=== PATIENT | male | born 1955 | race Caucasian/White ===

== ENCOUNTER 2018-07-27 06:31 | Inpatient (IN) ==
[2018-07-27] MEDS ORDERED: Morphine Inj 4 MG/ML Vial IV.PUSH ONE ×2 (07:17→08:19)
--- NOTE | 2018-07-27 07:20 | ED ---
HPI General Chief Complaint: Abdominal Pain Stated Complaint: Abd pain Time Seen by Provider: 07/27/18 07:09 Source: patient Mode of arrival: ambulatory Limitations: no limitations History of Present Illness HPI narrative: 63-year-old male states that 3 days ago he had abdominal pain and diarrhea but the diarrhea has now resolved. He states he does not feel like eating because of the pain and has a decreased appetite so he stopped and the diarrhea went away. He states he still nauseous and having significant abdominal pain. He states he has not had abdominal pain like this before. He states he had a kidney stone with lithotripsy about 10 years ago but with that he had flank pain. Location for this pain is right upper quadrant. Quality is sharp. Severity per patient is severe. He denies any migration of the pain. He denies history of pain like this before. He denies seeing a physician for this type of pain. He denies any other concurrent complaints. Related Data Home Medications Medication Instructions Recorded Confirmed diazepam 5 mg PO BID 07/27/18 07/27/18 meclizine 25 mg PO DAILY PRN 07/27/18 07/27/18 Allergies Allergy/AdvReac Type Severity Reaction Status Date / Time tetracycline Allergy Abdominal Verified 07/27/18 07:02 Pain Review of Systems ROS: all other systems reviewed are negative FORMERLY [facility], [facility] Medical History Medical History Anxiety (Acute) Depression (Acute) Menieres syndrome (Acute) Surgical History Surgical History H/O knee surgery (Acute) H/O rectal polypectomy (Acute) Social History Social History Substance History: No History of Abuse Second Hand Smoke Exposure: No Smoking Status: Never smoker How Often Do You Have a Drink Containing Alcohol: Never Recent Travel in [facility] within the Last 8 Weeks: No Recent Out of Country Travel within the Last 8 Weeks: No Immunization History Tetanus Immunization: >5 Years Exam Narrative Exam Narrative: GENERAL: 63 y/o male who appears uncomfortable SKIN: Focused skin assessment warm/dry. HEAD: Atraumatic. Normocephalic. EYES: Pupils equal and round. No scleral icterus. No injection or drainage. ENT: No nasal bleeding or discharge. Mucous membranes pink and moist. NECK: Trachea midline. CARDIOVASCULAR: Regular rate and rhythm. RESPIRATORY: No accessory muscle use. Clear to auscultation. Breath sounds equal bilaterally. GASTROINTESTINAL: Abdomen soft, ttp to ruq, nondistended. no rebound MUSCULOSKELETAL: No obvious deformities. No clubbing. No cyanosis. NEUROLOGICAL: Awake and alert. Motor grossly within normal limits. Normal speech. PSYCHIATRIC: Appropriate mood and affect; insight and judgment normal. Course Reevaluation(s) Reevaluation #1: patient updated and agrees to admit, given zosyn and repeat morphine Consultations Consultation #1: dr montemayor agrees to admit Initial Documented Vital Signs Temperature 99.2 F 07/27/18 06:34 Pulse Rate 78 07/27/18 06:34 Respiratory Rate 18 07/27/18 06:34 Blood Pressure 167/75 H 07/27/18 06:34 Pulse Oximetry 95 07/27/18 06:34 Last Documented Vital Signs Temperature 99.2 F 07/27/18 06:34 Pulse Rate 67 07/27/18 07:04 Respiratory Rate 18 07/27/18 07:04 Blood Pressure 132/72 07/27/18 09:03 Pulse Oximetry 97 07/27/18 07:04 Medical Decision Making MDM Narrative Medical decision making narrative: We will check blood work, urinalysis, CT scan , gallbladder ultrasound and dose of morphine and Zofran and reevaluate Medical Screen Exam Complete: Yes Emergency Medical Condition: Yes Differential Diagnosis Differential Diagnosis: Cholecystitis, stone, appendicitis, gastroenteritis, colitis Lab Data Lab results reviewed: Yes I reviewed the patient's lab results. Result diagrams: 07/27/18 04:15 07/27/18 04:15 Lab Results 07/27/18 07/27/18 07/27/18 Range/Units 04:15 04:15 07:30 WBC 9.6 (4.0-11.0) th/mm3 RBC 5.09 (4.50-5.90) mil/mm3 Hgb 15.0 (13.0-17.0) gm/dL Hct 44.3 (39.0-51.0) % MCV 87.0 (80.0-100.0) fL MCH 29.5 (27.0-34.0) pg MCHC 33.9 (32.0-36.0) % RDW 13.8 (11.6-17.2) % Plt Count 248 (150-450) th/mm3 MPV 7.0 (7.0-11.0) fL Neut % (Auto) 75.7 H (16.0-70.0) % Lymph % (Auto) 11.8 (9.0-44.0) % Carlton % (Auto) 11.3 H (0.0-8.0) % Eos % (Auto) 1.0 (0.0-4.0) % Baso % (Auto) 0.2 (0.0-2.0) % Neut # (Auto) 7.3 (1.8-7.7) th/mm3 Lymph # (Auto) 1.1 (1.0-4.8) th/mm3 Carlton # (Auto) 1.1 H (0.0-0.9) th/mm3 Eos # (Auto) 0.1 (0.0-0.4) th/mm3 Baso # (Auto) 0.0 (0.0-0.2) th/mm3 WBC Differential . Differential Comment Auto diff final Sodium 140 (136-145) meq/L Potassium 4.3 (3.5-5.1) meq/L Chloride 105 (98-107) meq/L Carbon Dioxide 29.9 (21.0-32.0) meq/L Anion Gap 5 (5-15) meq/L BUN 9 (7-18) mg/dL Creatinine 1.23 (0.60-1.30) mg/dL Estimated GFR 60 L (>89) mL/min Random Glucose 117 H (74-106) mg/dL Calcium 8.7 (8.5-10.1) mg/dL Magnesium 2.3 (1.5-2.5) mg/dL Total Bilirubin 1.2 H (0.2-1.0) mg/dL AST 16 (15-37) U/L ALT 25 (12-78) U/L Alkaline Phosphatase 59 (45-117) U/L Total Protein 8.1 (6.4-8.2) g/dL Albumin 4.0 (3.4-5.0) g/dL Lipase 65 L (73-393) U/L Urine Color Mayelin (Yellw/Straw) Urine Clarity Clear (Clear) Urine pH 6.0 (5.0-8.5) Ur Specific Calmar 1.020 (1.002-1.035) Urine Protein 30 H (Neg-Trace) mg/dL Urine Glucose (UA) Negative (Negative) mg/dL Urine Ketones 20 (Negative) mg/dL Urine Occult Blood Negative (Negative) Urine Nitrate Negative (Negative) Urine Bilirubin Negative (Negative) Urine Urobilinogen Less than 2 (Less than 2) mg/dL Ur Leukocyte Esterase Negative (Negative) Urine RBC 1 (0-3) /hpf Urine WBC 1 (0-5) /hpf Hyaline Casts 1 (0-3) /lpf Urine Mucus Few H (Occasional) /lpf Micro UA Comment Culture not ind Ur Microscopic Review Not Reportable Urine Culture Comments Culture not ind Imaging Data Attestation: I personally reviewed and interpreted this imaging study as follows : Radiologist's impression: Abdomen/Pelvis CT 07/27/18 07:17 CONCLUSION: 1. Inflammatory changes around the gallbladder suggesting acute cholecystitis 2. Renal cyst cyst on the right. No stone Discharge Plan Discharge Disposition Patient Disposition: ED Admit(ED Internal Use Only) Discharge Order Discharge Orders: ED Use Only Admit Order (Routine); Ordered 07/27/18 Ordered By: Naa Dalton Discharge Details Diagnosis: Cholecystitis Physicians Team ED Provider: Naa Dalton Primary Care Provider: Chad Amin Rxs /Orders / Referrals /Forms Prescriptions: No Action meclizine 25 mg Tablet 25 mg PO DAILY PRN (Reason: Dizziness) RF: 0 diazepam 5 mg Tablet 5 mg PO BID RF: 0 Discharge Interventions Interventions: Vital Signs Last Done: 07/27/18 09:03 Status ED Status: Admitted Observation Patient
[2018-07-27] MEDS ORDERED: Sod Chloride 0.9% Inj 1,000 ML IV.CONT SCH (07:30)
[2018-07-27 07:44] LABS: Baso % (Auto) 0.2 % (0.0-2.0); Eos # (Auto) 0.1 th/mm3 (0.0-0.4); Hematocrit 44.3 % (39.0-51.0); Lymph # (Auto) 1.1 th/mm3 (1.0-4.8); Lymph % (Auto) 11.8 % (9.0-44.0); Mean Corpuscular HGB Conc 33.9 % (32.0-36.0); Mean Corpuscular Hemoglobin 29.5 pg (27.0-34.0); Mono # (Auto) 1.1 th/mm3 (0.0-0.9); Mono % (Auto) 11.3 % (0.0-8.0); Neut # (Auto) 7.3 th/mm3 (1.8-7.7); Neut % (Auto) 75.7 % (16.0-70.0); Platelet Count 248 th/mm3 (150-450); Red Blood Count 5.09 mil/mm3 (4.50-5.90); Red Cell Distribution Width 13.8 % (11.6-17.2); White Blood Count 9.6 th/mm3 (4.0-11.0)
[2018-07-27 08:07] LABS: Alanine Aminotransferase 25 U/L (12-78); Anion Gap 5 meq/L (5-15); Aspartate Aminotransferase 16 U/L (15-37); Blood Urea Nitrogen 9 mg/dL (7-18); Calcium 8.7 mg/dL (8.5-10.1); Carbon Dioxide 29.9 meq/L (21.0-32.0); Chloride 105 meq/L (98-107); Glomerular Filtration Rate 60 mL/min (>89); Glucose,Random 117 mg/dL (74-106); Lipase 65 U/L (73-393); Magnesium 2.3 mg/dL (1.5-2.5); Potassium 4.3 meq/L (3.5-5.1); Sodium 140 meq/L (136-145)
[2018-07-27 08:10] LABS: Alkaline Phosphatase 59 U/L (45-117); Total Protein 8.1 g/dL (6.4-8.2)
[2018-07-27 08:12] LABS: Bilirubin,Urine Negative (Negative); Clarity,Urine Clear (Clear); Color,Urine Amber (Yellw/Straw); Glucose,Urine (UA) Negative (Negative); Hyaline Casts,Urine 1 /lpf (0-3); Leukocyte Esterase,Urine Negative (Negative); Mucus,Urine Few /lpf (Occasional); Nitrite,Urine Negative (Negative)
--- NOTE | 2018-07-27 08:18 | CT ---
EXAM DATE: 07/27/2018 8:08 AM EST AGE/SEX: 63 years / Male INDICATIONS: Right side abdominal pain. Nausea and vomiting. CLINICAL DATA: This is the patient's initial encounter. Patient reports that signs and symptoms have been present for 1 day and indicates a pain score of 5/10. MEDICAL/SURGICAL HISTORY: None. . Rectal polypectomy. RADIATION DOSE: 8.65 CTDI (mGy) COMPARISON: No prior exams available for comparison. TECHNIQUE: Multiple contiguous axial images were obtained through the abdomen. Images were obtained using multiple row detector helical technique. Using automated exposure control and adjustment of the mA and/or kV according to patient size, radiation dose was kept as low as reasonably achievable to o btain optimal diagnostic quality images. DICOM format image data is available electronically for rev iew and comparison. FINDINGS: Lower Lungs: The visualized lower lungs are clear. Liver: The liver has a homogeneous density without space-occupying lesion. Inflammatory changes are p resent about the gallbladder without definite stone Spleen: Homogeneous density without enlargement. Calcifications spleen. Pancreas: Unremarkable without mass or calcification. Kidneys: 2 renal cyst on the right. 4.6 cm is upper pole. 2.3 cm lower pole containing a tiny microc alcification wall. Mild perinephric stranding on the left. No stones Adrenal Glands: Unremarkable. Aorta: The aorta and proximal iliac vessels are grossly unremarkable without aneurysmal dilation. Bowel/Mesentery: The bowel loops are grossly unremarkable. The cecum and sigmoid colon have a normal configuration. Abdominal Wall: Intact. Retroperitoneum: No evidence of adenopathy in the retrocrural, para-aortic, or deep pelvic regions. Bladder: Contours are smooth. Reproductive Organs: No abnormal masses or calcifications seen. Inguinal: The inguinal region is unremarkable without evidence of adenopathy. Bony Structures: Unremarkable. CONCLUSION: 1. Inflammatory changes around the gallbladder suggesting acute cholecystitis 2. Renal cyst cyst on the right. No stone Electronically signed by: Chad Sanchez MD 07/27/2018 8:17 AM EST
[2018-07-27] MEDS ORDERED: Piperacil/Tazo 4.5 GM Premix 4.5 GM/100 ML BAG IV.SIG ONE (09:01)
--- NOTE | 2018-07-27 09:21 | US ---
EXAM DATE: 07/27/2018 8:48 AM EST AGE/SEX: 63 years / Male INDICATIONS: Right upper quadrant pain. Nausea and vomiting. Abnormal CT demonstrating apparent infl ammatory change around the bladder suggesting possible acute cholecystitis. CLINICAL DATA: This is the patient's initial encounter. Patient reports that signs and symptoms have been present for 3 days and indicates a pain score of 8/10. MEDICAL/SURGICAL HISTORY: . Meniere's syndrome. Kidney stone. . Rectal polypectomy. Knee surge ry. Lithotripsy. COMPARISON: [facility] [place], CT ABDOMEN & PELVIS W/O CONTRAST, 07/27/2018. . MEASUREMENTS: Liver:__ 19.6 cm. Common Bile Duct:__ 4mm. FINDINGS: Visualization is suboptimal secondary to patient's body habitus and overlying bowel gas. Liver: The liver is prominent measuring up to 19.6 cm and is diffusely increased in echogenicity wit h no focal mass or intrahepatic ductal dilatation. Portal Vein: Hepatopedal flow seen in portal vein. Common Duct: No intraluminal mass or stone visualized. Gallbladder: The gallbladder appears normal in size with diffuse increased echogenicity throughout t he gallbladder with several areas of posterior shadowing. This appears consistent with sludge and gal lstones. The patient had a positive sonographic Bustamante's sign. Gallbladder wall appears mildly thicke belinda measuring 4 to 5 mm in size. Pancreas: Not well visualized. Right Kidney: The right kidney is normal in size and shape with apparent simple cyst noted extending off the upper pole measuring up to 4.7 x 4.2 x 4.4 cm. Other: None. CONCLUSION: 1. Abnormal gallbladder which appears filled with sludge and/or stones. There is mild wall thickenin g with no pericholecystic fluid. The patient has a positive sonographic Bustamante's sign and the finding s are concerning for acute cholecystitis. 2. No evidence of biliary obstruction. 3. Prominent liver with apparent moderate hepatic steatosis. 4. Moderate size right renal cyst. Electronically signed by: Cliff Parrish MD 07/27/2018 9:20 AM EST
--- NOTE | 2018-07-27 10:42 | P.HPGS ---
History of Present Illness Service: General Surgery Primary Care Physician: Chad Amin History of Present Illness: The patient is a 63-year-old male who developed severe epigastric and right upper quadrant pain about 3 days ago associated with nausea and vomiting. He has had decreased oral intake. He has never had similar pain but he has been feeling fatigued and occasionally bloated over the last few months. He was found to have normal white blood count and normal LFTs except for mildly elevated bilirubin of 1.2. Gallbladder ultrasound shows sludge, stones and mild gallbladder wall thickening. CT abdomen and pelvis shows inflammatory changes around the gallbladder. No previous abdominal surgeries. - Diagnosis (1) Acute cholecystitis Review of Systems All other systems reviewed negative except as stated in HPI PMFSH - History History Provided By: Patient - Medical History Medical History: Medical History (Last Reviewed 07/27/18 @ 07:22 by Naa Dalton MD) Anxiety Depression Menieres syndrome - Surgical History Surgical History: Surgical History (Last Reviewed 07/27/18 @ 07:22 by Naa Dalton MD) H/O knee surgery H/O rectal polypectomy - Tobacco History Second Hand Smoke Exposure: No Smoking Status: Never smoker - Alcohol History How Often Do You Have a Drink Containing Alcohol: Never - Substance Use History Substance History: No History of Abuse - Travel History Recent Travel in the [place] Within the Last 8 Weeks: No Recent Travel Out of the Country Within the Last 8 Weeks: No - Immunization History Tetanus Immunization: >5 Years Medications and Allergies Active Medications: Active Medications Sodium Chloride (Ns Inj) 1,000 mls @ 125 mls/hr IV.CONT .Q8H RAJINDER Stop: 07/27/18 15:29 Last Infusion: 07/27/18 09:27 Dose: Infused Sodium Chloride (Ns Flush) 2 ml IV.FLUSH PRN PRN PRN Reason: FLUSH AFTER USING IV ACCESS Allergies Allergy/AdvReac Type Severity Reaction Status Date / Time tetracycline Allergy Abdominal Verified 07/27/18 07:02 Pain Home Medications Medication Instructions Recorded Confirmed Type diazepam 5 mg PO BID 07/27/18 07/27/18 History meclizine 25 mg PO DAILY PRN 07/27/18 07/27/18 History Exam Vital signs: Vital Signs 07/27/18 06:34 07/27/18 07:04 07/27/18 09:03 Temperature 99.2 F Pulse Rate 78 67 Respiratory Rate 18 18 Blood Pressure 167/75 H 145/75 H 132/72 Pulse Oximetry 95 97 Intake & Output 07/26/18 07/27/18 07/27/18 18:59 06:59 18:59 Intake Total 1100 / 1100 Balance 1100 / 1100 Weight 129.274 kg Intake: IV 1100 / 1100 NS Inj 1,000 ML @ 125 mls/hr IV 1000 / 1000 .CONT .Q8H RAJINDER Rx#:[id number] Zosyn 4.5 GM Premix 4.5 gm In 100 / 100 100 ml @ 200 mls/hr IV.SIG ONCE ONE Rx#:[id number] Narrative: GENERAL: Awake and alert. No acute distress. Cooperative. HEAD: Normocephalic. Atraumatic. EYES: Pupils equal round and reactive to light bilaterally. No scleral icterus. ENT: Moist oral mucosa. NECK: Trachea midline. CHEST: Nonlabored breathing. No respiratory distress. CARDIOVASCULAR: Regular rate and rhythm. ABDOMEN: Overweight. Severe right upper quadrant and epigastric tenderness to palpation. EXTREMITIES: No cyanosis or edema. SKIN: Warm, dry, nonjaundiced. Results - Labs 07/27/18 04:15 07/27/18 04:15 Laboratory Results - last 24 hr 07/27/18 07/27/18 07/27/18 04:15 04:15 07:30 WBC 9.6 RBC 5.09 Hgb 15.0 Hct 44.3 MCV 87.0 MCH 29.5 MCHC 33.9 RDW 13.8 Plt Count 248 MPV 7.0 Neut % (Auto) 75.7 H Lymph % (Auto) 11.8 Barton % (Auto) 11.3 H Eos % (Auto) 1.0 Baso % (Auto) 0.2 Neut # (Auto) 7.3 Lymph # (Auto) 1.1 Barton # (Auto) 1.1 H Eos # (Auto) 0.1 Baso # (Auto) 0.0 WBC Differential . Differential Comment Auto diff final Sodium 140 Potassium 4.3 Chloride 105 Carbon Dioxide 29.9 Anion Gap 5 BUN 9 Creatinine 1.23 Estimated GFR 60 L Random Glucose 117 H Calcium 8.7 Magnesium 2.3 Total Bilirubin 1.2 H AST 16 ALT 25 Alkaline Phosphatase 59 Total Protein 8.1 Albumin 4.0 Lipase 65 L Urine Color Mayelin Urine Clarity Clear Urine pH 6.0 Ur Specific Patton 1.020 Urine Protein 30 H Urine Glucose (UA) Negative Urine Ketones 20 Urine Occult Blood Negative Urine Nitrate Negative Urine Bilirubin Negative Urine Urobilinogen Less than 2 Ur Leukocyte Esterase Negative Urine RBC 1 Urine WBC 1 Hyaline Casts 1 Urine Mucus Few H Micro UA Comment Culture not ind Ur Microscopic Review Not Reportable Urine Culture Comments Culture not ind - Imaging Imaging: ITS Impressions Abdomen/Pelvis CT 07/27/18 07:17 CONCLUSION: 1. Inflammatory changes around the gallbladder suggesting acute cholecystitis 2. Renal cyst cyst on the right. No stone Gallbladder Ultrasound 07/27/18 07:17 CONCLUSION: 1. Abnormal gallbladder which appears filled with sludge and/or stones. There is mild wall thickening with no pericholecystic fluid. The patient has a positive sonographic Bustamante's sign and the findings are concerning for acute cholecystitis. 2. No evidence of biliary obstruction. 3. Prominent liver with apparent moderate hepatic steatosis. 4. Moderate size right renal cyst. CT scan - abdomen: report reviewed CT scan - pelvis: report reviewed US - abdomen: report reviewed Caprini VTE Risk Assessment Caprini VTE Risk Assessment: No/Low Risk (score <= 1) Caprini Risk Assessment Model: Point Value = 1 Point Value = 2 Point Value = 3 Point Value = 5 Age 41-60 Minor surgery BMI > 25 kg/m2 Swollen legs Varicose veins or History of unexplained or recurrent spontaneous Oral contraceptives or hormone replacement Sepsis (< 1 month) Serious lung disease, including pneumonia (< 1 month) Abnormal pulmonary function Acute myocardial infarction Congestive heart failure (< 1 month) History of inflammatory bowel disease Medical patient at bed rest Age 61-74 Arthroscopic surgery Major open surgery (> 45 min) Laparoscopic surgery (> 45 min) Malignancy Confined to bed (> 72 hours) Immobilizing plaster cast Central venous access Age >= 75 History of VTE Family history of VTE Factor V Leiden Prothrombin [id number] Lupus anticoagulant Anticardiolipin antibodies Elevated serum homocysteine Heparin-induced thrombocytopenia Other congenital or acquired thrombophilia Stroke (< 1 month) Elective arthroplasty Hip, pelvis, or leg fracture Acute spinal cord injury (< 1 month) Prophylaxis Regimen: Total Risk Factor Score Risk Level Prophylaxis Regimen 0-1 Low Early ambulation 2 Moderate Order ONE of the following: *Sequential Compression Device (SCD) *Heparin 5000 units SQ BID 3-4 Higher Order ONE of the following medications: *Heparin 5000 units SQ TID *Enoxaparin/Lovenox 40 mg SQ daily (WT < 150 kg, CrCl > 30 mL/min) *Enoxaparin/Lovenox 30 mg SQ daily (WT < 150 kg, CrCl > 10-29 mL/min) *Enoxaparin/Lovenox 30 mg SQ BID (WT < 150 kg, CrCl > 30 mL/min) AND/OR *Sequential Compression Device (SCD) 5 or more Highest Order ONE of the following medications: *Heparin 5000 units SQ TID (Preferred with Epidurals) *Enoxaparin/Lovenox 40 mg SQ daily (WT < 150 kg, CrCl > 30 mL/min) *Enoxaparin/Lovenox 30 mg SQ daily (WT < 150 kg, CrCl > 10-29 mL/min) *Enoxaparin/Lovenox 30 mg SQ BID (WT < 150 kg, CrCl > 30 mL/min) AND *Sequential Compression Device (SCD) Assessment and Plan - Assessment (1) Acute cholecystitis Code(s): K81.0 - Acute cholecystitis Status: Acute - Plan Patient with acute cholecystitis. Recommend to proceed to the operating room for laparoscopic possible open cholecystectomy. He is on the schedule for tomorrow morning. Will keep him on clear liquids, IV fluids, analgesia, and Zosyn until that time. The case was discussed in detail including risks. He desires to proceed.
[2018-07-27] MEDS: Sod Chloride 0.9% Inj 1,000 ML IV.CONT SCH ×2 (11:01→20:40)
[2018-07-27] MEDS: HYDROmorphone PF Inj 1 MG/ML Ampul IV.PUSH PRN ×5 (11:01→20:36)
[2018-07-27] MEDS: Ketorolac Inj 30 MG/ML (IVP) Vial IV.PUSH SCH ×3 (11:01→22:06)
[2018-07-27] MEDS: Piperacil/Tazo 3.375 GM Premix 50 ML IV.SIG SCH ×2 (18:06→22:07)
[2018-07-27] MEDS ORDERED: Acetaminophen 325 MG Tablet PO PRN (21:36)
[2018-07-28] MEDS: Piperacil/Tazo 3.375 GM Premix 50 ML IV.SIG SCH ×4 (05:03→21:49)
[2018-07-28] MEDS: Ketorolac Inj 30 MG/ML (IVP) Vial IV.PUSH SCH ×4 (05:04→23:47)
[2018-07-28] MEDS: Sod Chloride 0.9% Inj 1,000 ML IV.CONT SCH ×3 (06:42→21:50)
[2018-07-28] MEDS ORDERED: fentaNYL Citrate Inj 250 MCG/5 ML Ampul ONE (08:03)
[2018-07-28] MEDS ORDERED: Bupivacaine/Epinephrine Inj 0.25% 50 ML Vial ONE (08:15)
--- NOTE | 2018-07-28 10:34 | P.OP ---
- Preoperative Diagnosis (1) Acute calculous cholecystitis - Postoperative Diagnosis (1) Acute gangrenous cholecystitis Date of procedure: 07/28/18 Procedure: Laparoscopic cholecystectomy Anesthesia: VERONA Surgeon: Primo Starks MD Chute Loader: Tasneem TUCKER Estimated blood loss (mL): 100 Pathology: other (gallbladder) Operation and Findings: Operative findings: Extremely distended and inflamed gallbladder with dark maroon bile, numerous stones, gangrenous wall. Procedure in detail: The patient was taken to the operating room and placed in the supine position. General endotracheal anesthesia was induced. The abdomen was prepped and draped in usual sterile fashion and a surgical timeout was performed to verify correct patient procedure and site. Appropriate perioperative antibiotics were administered. Local anesthetic was injected in the skin and subcutaneous tissue superior to the umbilicus and a 5 mm incision performed. The abdomen was entered using the Optiview 5 mm trocar with direct laparoscopic visualization. The abdomen was then insufflated to 15 mmHg with CO2 gas which the patient tolerated well. Next a 12 mm port was placed in the epigastrium and two 5 mm ports in the right upper quadrant and right lateral abdomen. The patient was placed in reverse Trendelenburg position and turned slightly to the left. Attention was turned to the right upper quadrant. Omentum was covering the gallbladder and this was bluntly dissected away using suction gemologist. Gallbladder was decompressed using suction gemologist via incision in dome. Bile was thick maroon black. At this point, the dome of the gallbladder was grasped and retracted cephalad. The infundibulum was retracted laterally to expose Calot's triangle. There was severe inflammation throughout the gallbladder. The majority of the gallbladder wall was gangrenous. Careful blunt dissection and judicious electrocautery was used to visualize the cystic artery which was clipped twice proximally once distally and transected. The infundibulum of the gallbladder was also gangrenous and due to the gangrene and inflammation I then proceeded with dome down dissection of the remainder of the gallbladder. The gallbladder was entered in a couple of places with spillage of a few stones. Finally the only remaining attachment was the cystic duct/neck of the gallbladder. There was a stone down in the neck which was milked up through a hole in the wall and removed. 2 #1 PDS Endoloops were then placed on the cystic duct securely. The cystic duct itself was probably somewhat gangrenous but was well intact. Hemostasis was achieved using cautery and placement of surgicel powder. The gallbladder was then removed from the abdomen using an Endo Catch bag including some stones which had spilled. The loops were in place on the cystic duct with no bile leakage. 19 Fr round andrew drain placed through right lateral incision into gallbladder fossa and secured to skin with 3-0 nylon. At this point, the abdomen was allowed to desufflate and trochars were removed. The fascia at the 12 mm port site was closed with 0 Vicryl suture. Skin was closed with subcuticular 4-0 Monocryl as well as Dermabond. The patient tolerated the procedure well and was extubated and taken to PACU in stable condition. All sponge and instrument counts were correct.
[2018-07-28] MEDS ORDERED: *morphine SULFATE 4 MG/ML PERIprocedure ONLY ONE (10:53)
--- NOTE | 2018-07-28 12:06 | ECG ---
Date Performed: 07/28/2018 Time Performed: 05:11:00 PTAGE: 63 years EKG: Sinus rhythm --- Suspect arm lead reversal - only aVF, V1-V6 analyzed --- Abnormal ECG NO PREVIOUS TRACING DOCTOR: Lance Eller Interpretating Date/Time 07/28/2018 12:05:43
[2018-07-28] MEDS: HYDROmorphone PF Inj 1 MG/ML Ampul IV.PUSH PRN (19:57)
[2018-07-29] MEDS: Piperacil/Tazo 3.375 GM Premix 50 ML IV.SIG SCH (04:56)
[2018-07-29] MEDS: Sod Chloride 0.9% Inj 1,000 ML IV.CONT SCH (04:56)
[2018-07-29] MEDS: Ketorolac Inj 30 MG/ML (IVP) Vial IV.PUSH SCH (05:02)
[2018-07-29 06:32] LABS: Anion Gap 7 meq/L (5-15); Aspartate Aminotransferase 75 U/L (15-37); Blood Urea Nitrogen 22 mg/dL (7-18); Calcium 8.7 mg/dL (8.5-10.1); Carbon Dioxide 27.2 meq/L (21.0-32.0); Chloride 107 meq/L (98-107); Glomerular Filtration Rate 45 mL/min (>89); Glucose,Random 133 mg/dL (74-106); Potassium 4.6 meq/L (3.5-5.1); Sodium 141 meq/L (136-145)
[2018-07-29 06:34] LABS: Alanine Aminotransferase 136 U/L (12-78)
[2018-07-29 06:36] LABS: Alkaline Phosphatase 68 U/L (45-117); Total Protein 7.2 g/dL (6.4-8.2)
== END 2018-07-29 11:57 | disposition home or self-care (01) ==
LOC: NEDA 06:31 → NEPC 06:31 → NEDH 13:55 → N07 15:50
PROVIDERS: ADMIT Surgery; ATTEND Surgery